=== PATIENT | female | born 1965 | race Caucasian/White ===

== ENCOUNTER 2018-02-03 14:51 | Emergency (ER) | payer OTHER ==
[2018-02-03 15:50] VITALS: BP 158/89
--- NOTE | 2018-02-03 16:23 | UC ---
Skin Complaint HPI - HPI Summary HPI Summary: C/O painful red lumps in the left axilla. No fevers. Going on 3 days and getting a lot worse. - History of Current Complaint Chief Complaint: UCRash Time Seen by Provider: 02/03/18 16:08 Stated Complaint: SKIN COMPLAINT Hx Obtained From: Patient Hx Last Menstrual Period: 1 yr+ ?: No Onset/Duration: Sudden Onset, Lasting Days - 3, Worse Since - onset Timing: Constant Onset Severity: Mild Current Severity: Moderate Pain Intensity: 5 Location: Discrete - left axilla Character: Swelling, Pain, Redness, Raised Aggravating Factor(s): Touch Alleviating Factor(s): Nothing Associated Signs & Symptoms: Negative: Diaphoresis, Fever, Chills, Drainage - Allergy/Home Medications Allergies/Adverse Reactions: Allergies Allergy/AdvReac Type Severity Reaction Status Date / Time cephalexin [From Keflex] Allergy Hives/Diff. Verified 02/03/18 15:50 Breathing/I tching Review of Systems Skin: Rash Respiratory: Cough - smokers Is Patient Immunocompromised?: No All Other Systems Reviewed And Are Negative: Yes PMH/Surg Hx/FS Hx/Imm Hx Previously Healthy: Yes - Surgical History Surgical History: Yes Surgery Procedure, Year, and Place: surgery to left wrist / carpal tunnel 1998. c section 1989 - Family History Known Family History: Positive: Cardiac Disease, Hypertension, Diabetes - Social History Occupation: Unemployed Lives: Dormitory/Roommates Alcohol Use: Occasionally Substance Use Type: None Smoking Status (MU): Light Every Day Tobacco Smoker Type: Cigarettes Amount Used/How Often: 1 ppd Cessation Counseling: Counseled 3+Min - 10 Min - Immunization History Most Recent Influenza Vaccination: jul 2016 Physical Exam Triage Information Reviewed: Yes Appearance: Well-Appearing, Well-Nourished, Pain Distress - mild with examination left axilla Vital Signs: Initial Vital Signs Temp 98.7 F 02/03/18 15:42 Pulse 77 02/03/18 15:42 Resp 20 02/03/18 15:42 BP 158/89 02/03/18 15:42 Pulse Ox 98 02/03/18 15:42 Vital Signs Reviewed: Yes Eyes: Positive: Conjunctiva Clear Neck exam: Normal Respiratory Exam: Normal Cardiovascular Exam: Normal Musculoskeletal Exam: Normal Neurological Exam: Normal Psychological Exam: Normal Skin: Positive: Other - swelling and tenderness with redness and warmth left axilla. No flucuent areas. Course/Dx - Differential Diagnoses - Skin Complaint Differential Diagnoses: Abscess, Cellulitis, Impetigo - Diagnoses Provider Diagnoses: abscess left axilla Discharge - Sign-Out/Discharge Documenting (check all that apply): Discharge/Admit/Transfer - Discharge Plan Condition: Stable Disposition: HOME Prescriptions: Sulfamethox/Trimethoprim DS* [Bactrim DS 800/160 TAB*] 1 tab PO BID #20 tab Forms: *Work Release Referrals: Jemma Dee MD [Primary Care Provider] - 1 Week (Recheck blood pressure) Additional Instructions: If it gets a lot more swollen, you may need to be seen again to have it drained. - Billing Disposition and Condition Condition: STABLE Disposition: HOME
== END 2018-02-03 16:37 | disposition home or self-care (01) ==
LOC: UCCORT 14:51
DX: L02.412 Cutaneous abscess of left axilla (principal); Z88.1 Allergy status to other antibiotic agents; F17.210 Nicotine dependence, cigarettes, uncomplicated
CPT/HCPCS: 99212; G0463